=== PATIENT | male | born 2005 | race Caucasian/White ===

== ENCOUNTER 2025-03-01 10:40 | Emergency (ER) | payer OTHER ==
[~2025-03-01] VITALS: Ht 190.5 cm; Wt 77.1 kg
[2025-03-01 10:49] VITALS: BP 122/75; TEMP 98.4; O2SAT 99
== END 2025-03-01 11:36 | disposition home or self-care (01) ==
LOC: EDBD 10:40 → M ED 10:40
DX: S00.83XA Contusion of other part of head, initial encounter (principal); V49.40XA Driver injured in collision with unspecified motor vehicles in traffic accident, initial encounter; Y92.89 Other specified places as the place of occurrence of the external cause; Y93.89 Activity, other specified; Y99.8 Other external cause status